=== PATIENT | female | born 1960 | race Caucasian/White ===

== ENCOUNTER 2019-04-02 14:30 | Inpatient (IN) | payer OTHER ==
--- NOTE | 2019-04-02 14:31 | PDOC ---
History of Present Illness - General Chief Complaint: Vomiting/Diarrhea Stated Complaint: n/v/d Time Seen by Provider: 04/02/19 14:31 - History of Present Illness Initial Comments: HPI: 58yo F with PMH of IBS, hypothyroidism, hiatal hernia, recent pneumonia ( finished z-calvin on Sunday) presenting with weakness, nausea, vomiting, and diarrhea. Patient states she has been feeling poorly for the past month and a half. Since yesterday, patient has had about seven episodes of nonbloody bilious vomiting as well as five to six episodes of diarrhea. Ate leftovers last night which she does not think were suspect and no one else had this food. She has had poor po intake today due to nausea. Also had a significant headache yesterday which was relieved with tylenol. Denies recent falls, focal weakness, or syncope. Has had some adjustments in medications including bisphosponates and thyroid medication. No recent sick contacts. Denies chest pain or shortness of breath. Endorses chills and subjective fever. ROS: Constitutional: +fever, +chills HEENT: no throat pain, no dysphagia Cardiovascular: no chest pain, no palpitations Respiratory: +cough, no shortness of breath Gastrointestinal: +vomiting, +diarrhea Genitourinary: no dysuria, no hematuria Musculoskeletal: no myalgia, no arthralgia Skin: no rash, no itching Neurologic: no syncope, +weakness PE: General: Awake, alert, and fully oriented, in no acute distress Head: No signs of trauma Eyes: EOMI, sclera anicteric ENT: Dry mucus membranes Neck: Normal ROM, supple Lungs: Lungs clear, Normal breath sounds Cardio: Regular rhythm, S1 and S2 present Abdomen: Soft, nondistended. Mild diffuse ttp, however distractable. No rebound , guarding, masses. No CVA tenderness. Extremities: Normal range of motion, Distal pulses present, No calf tenderness SKIN: Warm, Dry, normal turgor Neurologic: Cranial nerves II through XII grossly intact. Normal speech ED Course/MDM: DDX including but not limited to dehydration, gastroenteritis, ACS, PNA, anemia , metabolic derangement Labs, EKG, CXR Fluids Zofran 04/02/19 14:31 Tylenol Pepcid EKG: rate 68, QTc 452, NSR 04/02/19 16:01 CBC WBC 12.3 K/mm3 (4.0-10.8) H 04/02/19 15:24 RBC 4.43 M/mm3 (3.60-5.2) 04/02/19 15:24 Hgb 12.2 GM/dl (10.7-15.3) 04/02/19 15:24 Hct 38.0 % (32.4-45.2) 04/02/19 15:24 MCV 85.9 fl (80-96) 04/02/19 15:24 MCH 27.6 pg (25.7-33.7) 04/02/19 15:24 MCHC 32.1 g/dl (32.0-36.0) 04/02/19 15:24 RDW 12.9 % (11.6-15.6) 04/02/19 15:24 Plt Count 331 K/MM3 (134-434) 04/02/19 15:24 MPV 8.4 fl (7.5-11.1) 04/02/19 15:24 Absolute Neuts (auto) 10.6 K/mm3 04/02/19 15:24 Neutrophils % 86.0 % (42.8-82.8) H 04/02/19 15:24 Lymphocytes % 9.6 % (8-40) 04/02/19 15:24 Monocytes % 3.8 % (3.8-10.2) 04/02/19 15:24 Eosinophils % 0.4 % (0-4.5) 04/02/19 15:24 Basophils % 0.2 % (0-2.0) 04/02/19 15:24 Mild leukocytosis No anemia CMP Sodium 136 mmol/L (136-145) 04/02/19 15:24 Potassium 3.6 mmol/L (3.5-5.1) 04/02/19 15:24 Chloride 104 mmol/L (98-107) 04/02/19 15:24 Carbon Dioxide 24 mmol/L (21-32) 04/02/19 15:24 Anion Gap 8 MMOL/L (8-16) 04/02/19 15:24 BUN 8.0 mg/dl (7-18) 04/02/19 15:24 Creatinine 0.8 mg/dl (0.55-1.3) 04/02/19 15:24 Est GFR (CKD-EPI)AfAm 94.19 04/02/19 15:24 Est GFR (CKD-EPI)NonAf 81.27 04/02/19 15:24 Random Glucose 90 mg/dl (74-106) 04/02/19 15:24 Calcium 8.2 mg/dl (8.5-10) L 04/02/19 15:24 Total Bilirubin 1.1 mg/dl (0.2-1) H 04/02/19 15:24 AST 18 U/L (15-37) 04/02/19 15:24 ALT 14 U/L (13-61) 04/02/19 15:24 Alkaline Phosphatase 79 U/L (45-117) 04/02/19 15:24 Creatine Kinase 38 U/L (26-192) 04/02/19 15:24 Troponin I < 0.03 ng/ml (0.00-0.05) 04/02/19 15:24 Total Protein 6.9 g/dl (6.4-8.2) 04/02/19 15:24 Albumin 3.6 g/dl (3.4-5.0) 04/02/19 15:24 Lipase 83 U/L (73-393) 04/02/19 15:24 Electrolytes unremarkable Normal Cr No transaminitis Tpn undetectable Lipase normal UA with 1+ ketones; trace LE and WBCs, however contaminated with many epithelials Patient reports no change in how she feels. States she continues to have nausea and dry heaving Another 1L NS ordered; Reglan for nausea CXR, as reported by radiology: The heart size is within normal limits. The lung graham are free or pulmonary infiltrates or pleural effusions. IMPRESSION: Normal chest Pending influenza test Pending reassessment 04/02/19 17:24 Patient given ice chips; unable to tolerate po after two antiemetics Plan for admission [employer] sent; awaiting callback 04/02/19 18:20 Discussed case with Cierra Meier who accepted patient for admission under Dr. Rodriguez 04/02/19 19:16 Past History - Past Medical History Allergies/Adverse Reactions: Allergies Allergy/AdvReac Type Severity Reaction Status Date / Time amoxicillin trihydrate Allergy Intermediate Rash Verified 04/02/19 15:38 [From Augmentin] potassium clavulanate Allergy Intermediate Rash Verified 04/02/19 15:38 [From Augmentin] Home Medications: Ambulatory Orders Aspirin [Aspir 81] 81 mg PO DAILY 06/07/12 Cholecalciferol (Vitamin D3) [Vitamin D3] 2,000 unit PO DAILY capsule 09/09/14 Levothyroxine [Synthroid -] 75 mcg PO DAILY 04/02/19 Anemia: Yes (MARC) Asthma: No Cancer: No Cardiac Disorders: No CVA: No COPD: Yes (PNEUMONIA) CHF: No Dementia: No Diabetes: No GI Disorders: Yes (HIATAL HERNIA; DIVERTICULOSIS; IBS;) Disorders: No HTN: No Hypercholesterolemia: No Liver Disease: No Seizures: No Thyroid Disease: Yes (HYPOTHYROIDISM;) - Surgical History Abdominal Surgery: No Appendectomy: Yes Cardiac Surgery: No Cholecystectomy: No Lung Surgery: No Neurologic Surgery: No Orthopedic Surgery: No - Psycho Social/Smoking Cessation Hx Smoking History: Never smoked Hx Alcohol Use: Yes (SOCIAL) Drug/Substance Use Hx: No Substance Use Type: None Hx Substance Use Treatment: No ED Treatment Course - LABORATORY CBC & Chemistry Diagram: 04/02/19 15:24 04/02/19 15:24 Discharge - Discharge Information Problems reviewed: Yes Clinical Impression/Diagnosis: Nausea vomiting and diarrhea, Dehydration Condition: Guarded - Admission Yes - Follow up/Referral - Patient Discharge Instructions - Post Discharge Activity
[2019-04-02] MEDS ORDERED: SODIUM CHLORIDE 1,000 ML IV STA ×3 (15:22→18:15)
[2019-04-02] MEDS ORDERED: ONDANSETRON 4 MG/2 ML VIAL IVPUSH ONE (15:22)
[2019-04-02] MEDS ORDERED: ONDANSETRON 4 MG/2 ML VIAL ONE ×2 (15:30→18:34)
[2019-04-02 15:52] LABS: BASO % 0.2 % (0-2.0); EOS % 0.4 % (0-4.5); HEMOGLOBIN 12.2 GM/dl (10.7-15.3); LYMPH % 9.6 % (8-40); MCH 27.6 pg (25.7-33.7); MCHC 32.1 g/dl (32.0-36.0); MEAN CELL VOLUME 85.9 fl (80-96); MEAN PLT VOLUME 8.4 fl (7.5-11.1); MONO % 3.8 % (3.8-10.2); PLATELET COUNT 331 K/MM3 (134-434); RBC 4.43 M/mm3 (3.60-5.2); RDW 12.9 % (11.6-15.6); WHITE BLOOD COUNT 12.3 K/mm3 (4.0-10.8)
[2019-04-02 15:59] LABS: ALBUMIN 3.6 g/dl (3.4-5.0); BILIRUBIN,TOTAL 1.1 mg/dl (0.2-1); CALCIUM 8.2 mg/dl (8.5-10); CREATININE 0.8 mg/dl (0.55-1.3); POTASSIUM 3.6 mmol/L (3.5-5.1); TOT PROT 6.9 g/dl (6.4-8.2)
[2019-04-02 15:59] LABS: URINE APPEARANCE SL CLOUDY; URINE BILIRUBIN 1+ (NEGATIVE); URINE COLOR YELLOW; URINE GLUCOSE (UA) NEGATIVE (NEGATIVE)
[2019-04-02 16:00] LABS: URINE KETONE 1+ (NEGATIVE); URINE LEUK ESTERASE TRACE (NEGATIVE); URINE NITRITE NEGATIVE (NEGATIVE); URINE PROTEIN 2+ (NEGATIVE); URINE UROBILINOGEN 0.2 (0.2-1.0)
[2019-04-02] MEDS ORDERED: FAMOTIDINE 20 MG/50 ML IVPB 20 MG/50 ML MG IVPB ONE ×2 (16:00→16:08)
[2019-04-02] MEDS ORDERED: ACETAMINOPHEN 1000 MG/100 ML VIAL (NON FORMULARY) IVPB ONE (16:00)
[2019-04-02 16:01] LABS: EPITHELIAL CELLS MANY /hpf; URINE BACTERIA MANY /hpf (NEGATIVE)
[2019-04-02] MEDS ORDERED: ACETAMINOPHEN INJECTION 100 ML IVPB ONE (16:08)
--- NOTE | 2019-04-02 16:12 | PDOC ---
Attending Attestation - Resident Resident Name: Maryjo Irwin - ED Attending Attestation I have performed the following: I have examined & evaluated the patient, The case was reviewed & discussed with the resident, I agree w/resident's findings & plan, Exceptions are as noted - HPI HPI: 04/02/19 16:10 58 F with h/o IBS, hypothyroid, presenting to ED with N+V+D. Pt states that she has felt unwell for the past month. She notes that she was diagnosed with PNA last week and completed a course of azithromycin. Last night, pt states that she began to feel nauseous. She vomited about 7 times, followed by several episodes of diarrhea. Pt endorses headache last night that has since resolved. Denies fevers but endorses chills. Denies CP/SOB. Denies abdominal pain. - Physicial Exam PE: 04/02/19 16:11 "GENERAL: Awake, alert, and fully oriented, in no acute distress. HEAD: No signs of trauma EYES: PERRLA, EOMI, sclera anicteric, conjunctiva clear ENT: Auricles normal inspection, hearing grossly normal, nares patent, oropharynx clear without exudates. Moist mucosa NECK: Nontender, no stepoffs, Normal ROM, supple, no lymphadenopathy, JVD, or masses LUNGS: Breath sounds equal, clear to auscultation bilaterally. No wheezes, and no crackles HEART: Regular rate and rhythm, normal S1 and S2, no murmurs, rubs or gallops ABDOMEN: Soft, nontender, normoactive bowel sounds. No guarding, no rebound. No masses EXTREMITIES: Normal range of motion, no edema. No clubbing or cyanosis. No cords, erythema, or tenderness NEUROLOGICAL: Cranial nerves II through XII intact. 5/5 strength and sensation in all extremities, Normal speech, normal gait, normal cerebellar function SKIN: Warm, Dry, normal turgor, no rashes or lesions noted. - Medical Decision Making 04/02/19 16:12 58 F with N+V+D. Suspect viral gastroenteritis. - Labs - IVF, GI cocktail 04/02/19 18:16 Pt reassessed - continues to have nausea and vomiting despite zofran, reglan, and fluids Labs unremarkable Will admit for failure to PO
[2019-04-02 16:14] LABS: URINE WBC 20-40 (NEGATIVE)
[2019-04-02 16:15] LABS: EPI CELLS many /HPF
[2019-04-02] MEDS ORDERED: METOCLOPRAMIDE HCL INJECTION 10 MG/2 ML VIAL IVPUSH ONE (16:51)
[2019-04-02] MEDS ORDERED: METOCLOPRAMIDE HCL INJECTION 10 MG/2 ML VIAL ONE (16:56)
[2019-04-02] MEDS ORDERED: METOCLOPRAMIDE HCL INJECTION 10 MG/2 ML VIAL IVPB ONE (16:56)
[2019-04-02] MEDS ORDERED: ONDANSETRON 4 MG/2 ML VIAL IVPB ONE (18:15)
[2019-04-02] MEDS: DEXTROSE 5%-NORMAL SALINE 1,000 ML IV SCH (22:47)
[2019-04-02 23:11] VITALS: BMI 23.8
[2019-04-03] MEDS: LEVOTHYROXINE NA 75 MCG TABLET (FP) PO SCH (06:09)
[2019-04-03 07:50] LABS: BASO % 0.3 % (0-2.0); EOS % 1.9 % (0-4.5); HEMATOCRIT 33.2 % (32.4-45.2); HEMOGLOBIN 11.1 GM/dl (10.7-15.3); MCH 28.9 pg (25.7-33.7); MCHC 33.3 g/dl (32.0-36.0); MEAN CELL VOLUME 86.8 fl (80-96); MEAN PLT VOLUME 8.6 fl (7.5-11.1); MONO % 5.4 % (3.8-10.2); NEUT % 75.4 % (42.8-82.8); PLATELET COUNT 280 K/MM3 (134-434); RBC 3.83 M/mm3 (3.60-5.2); RDW 12.7 % (11.6-15.6); WHITE BLOOD COUNT 7.6 K/mm3 (4.0-10.8)
--- NOTE | 2019-04-03 07:52 | HP ---
CHIEF COMPLAINT: Vomiting PCP: Dr. Alfonso HISTORY OF PRESENT ILLNESS: 58 year-old female with a PMH significant for hypothyroidism, diverticulosis, and IBS. Recent pneumonia (finished z-calvin on Sunday) presenting with weakness, nausea, vomiting, and diarrhea. Ate leftovers yesterday and several hours later developed multiple episodes of nonbloody bilious vomiting and five to six episodes of diarrhea Has had some adjustments in medications including bisphosponates and thyroid medication. No recent sick contacts. Denies chest pain or shortness of breath. Endorses chills and subjective fever. ER course was notable for: (1) WBC 12.3k (2) UA: pyuria Recent Travel: No PAST MEDICAL HISTORY: Graves disease Hypothyroidism Diverticulosis IBS PAST SURGICAL HISTORY: Discectomy L4-5 C-sectin x 2 Apendectomy Hemorrhoid banding Social History: corporate executive Smoking: quit 1978 Alcohol: social Drugs: marijuana 3x/week Family history: Mother 72, h/o [place] @ 46, ulcerative colitis, breast cancer; father 69 colon cancer, HTN; 1 brother HTN; 1 sister h/o Guillian Towson ; strong maternal history of diverticulitis Allergies amoxicillin trihydrate [From Augmentin] Allergy (Intermediate, Verified 15:38) Rash potassium clavulanate [From Augmentin] Allergy (Intermediate, Verified 04/02/19 15:38) Rash HOME MEDICATIONS: Home Medications Medication Instructions Recorded Aspirin [Aspir 81] 81 mg PO DAILY 06/07/12 Cholecalciferol (Vitamin D3) 2,000 unit PO DAILY capsule 09/09/14 [Vitamin D3] Levothyroxine [Synthroid -] 75 mcg PO DAILY 04/02/19 REVIEW OF SYSTEMS CONSTITUTIONAL: Absent: fever, chills, diaphoresis, generalized weakness, malaise, loss of appetite, weight change HEENT: Absent: rhinorrhea, nasal congestion, throat pain, throat swelling, difficulty swallowing, mouth swelling, ear pain, eye pain, visual changes CARDIOVASCULAR: Absent: chest pain, syncope, palpitations, irregular heart rate, lightheadedness , peripheral edema RESPIRATORY: Absent: cough, shortness of breath, dyspnea with exertion, orthopnea, wheezing, stridor, hemoptysis GASTROINTESTINAL: +nausea, vomiting, diarrhea Absent: abdominal pain, abdominal distension, constipation, melena, hematochezia GENITOURINARY: Absent: dysuria, frequency, urgency, hesitancy, hematuria, flank pain, genital pain MUSCULOSKELETAL: Absent: myalgia, arthralgia, joint swelling, back pain, neck pain SKIN: Absent: rash, itching, pallor HEMATOLOGIC/IMMUNOLOGIC: Absent: easy bleeding, easy bruising, lymphadenopathy, frequent infections ENDOCRINE: Absent: unexplained weight gain, unexplained weight loss, heat intolerance, cold intolerance NEUROLOGIC: Absent: headache, focal weakness or paresthesias, dizziness, unsteady gait, seizure, mental status changes, bladder or bowel incontinence PSYCHIATRIC: Absent: anxiety, depression, suicidal or homicidal ideation, hallucinations. PHYSICAL EXAMINATION Vital Signs - 24 hr 04/02/19 04/02/19 04/02/19 14:31 17:54 20:59 Temperature 98.9 F 98.3 F 98 F Pulse Rate 72 60 Pulse Rate [ 70 Right] Respiratory 16 18 18 Rate Blood Pressure 146/89 125/74 Blood Pressure 137/81 [Left Arm] O2 Sat by Pulse 99 97 98 Oximetry (%) 04/02/19 04/02/19 04/03/19 21:00 23:53 03:00 Temperature 97.7 F 97.8 F Pulse Rate 55 L 56 L Pulse Rate [ Right] Respiratory 18 18 18 Rate Blood Pressure 130/73 144/81 Blood Pressure [Left Arm] O2 Sat by Pulse 98 99 100 Oximetry (%) 04/03/19 07:39 Temperature Pulse Rate Pulse Rate [ Right] Respiratory 18 Rate Blood Pressure Blood Pressure [Left Arm] O2 Sat by Pulse 100 Oximetry (%) GENERAL: Awake, alert, and fully oriented, in no acute distress. LUNGS: Breath sounds equal, clear to auscultation bilaterally. No wheezes, and no crackles. No accessory muscle use. HEART: Regular rate and rhythm, normal S1 and S2 ABDOMEN: Soft, nontender, not distended, normoactive bowel sounds, no guarding, no rebound MUSCULOSKELETAL: Normal range of motion at all joints. No bony deformities or tenderness. No CVA tenderness. UPPER EXTREMITIES: 2+ pulses, warm, well-perfused. No cyanosis. No clubbing. No peripheral edema. LOWER EXTREMITIES: 2+ pulses, warm, well-perfused. No calf tenderness. No peripheral edema. NEUROLOGICAL: Cranial nerves II-XII intact. Normal speech. Laboratory Results - last 24 hr 04/02/19 04/02/1919 15:20 15:24 15:24 WBC 12.3 H RBC 4.43 Hgb 12.2 Hct 38.0 MCV 85.9 MCH 27.6 MCHC 32.1 RDW 12.9 Plt Count 331 MPV 8.4 Absolute Neuts (auto) 10.6 Neutrophils % 86.0 H Lymphocytes % 9.6 Monocytes % 3.8 Eosinophils % 0.4 Basophils % 0.2 Sodium 136 Potassium 3.6 Chloride 104 Carbon Dioxide 24 Anion Gap 8 BUN 8.0 Creatinine 0.8 Est GFR (CKD-EPI)AfAm 94.19 Est GFR (CKD-EPI)NonAf 81.27 Random Glucose 90 Calcium 8.2 L Total Bilirubin 1.1 H AST 18 ALT 14 Alkaline Phosphatase 79 Creatine Kinase Troponin I Total Protein 6.9 Albumin 3.6 Lipase Urine Color Yellow Urine Appearance Sl cloudy Urine pH 6.0 Ur Specific Wilburn 1.025 Urine Protein 2+ Urine Glucose (UA) Negative Urine Ketones 1+ H Urine Blood 1+ Urine Nitrite Negative Urine Bilirubin 1+ Urine Urobilinogen 0.2 Ur Leukocyte Esterase Trace H Urine WBC (Auto) 20-40 Urine RBC (Auto) 10-20 U Epithel Cells (Auto) many Urine Bacteria (Auto) Many Urine RBC 10-20 Urine WBC 20-40 Ur Transition Epith Cell Many Influenza A (Rapid) Influenza B (Rapid) 04/02/19 04/02/19 04/02/19 15:24 15:24 15:24 WBC RBC Hgb Hct MCV MCH MCHC RDW Plt Count MPV Absolute Neuts (auto) Neutrophils % Lymphocytes % Monocytes % Eosinophils % Basophils % Sodium Potassium Chloride Carbon Dioxide Anion Gap BUN Creatinine Est GFR (CKD-EPI)AfAm Est GFR (CKD-EPI)NonAf Random Glucose Calcium Total Bilirubin AST ALT Alkaline Phosphatase Creatine Kinase 38 Troponin I < 0.03 Total Protein Albumin Lipase 83 Urine Color Urine Appearance Urine pH Ur Specific Wilburn Urine Protein Urine Glucose (UA) Urine Ketones Urine Blood Urine Nitrite Urine Bilirubin Urine Urobilinogen Ur Leukocyte Esterase Urine WBC (Auto) Urine RBC (Auto) U Epithel Cells (Auto) Urine Bacteria (Auto) Urine RBC Urine WBC Ur Transition Epith Cell Influenza A (Rapid) Influenza B (Rapid) 04/02/19 17:15 WBC RBC Hgb Hct MCV MCH MCHC RDW Plt Count MPV Absolute Neuts (auto) Neutrophils % Lymphocytes % Monocytes % Eosinophils % Basophils % Sodium Potassium Chloride Carbon Dioxide Anion Gap BUN Creatinine Est GFR (CKD-EPI)AfAm Est GFR (CKD-EPI)NonAf Random Glucose Calcium Total Bilirubin AST ALT Alkaline Phosphatase Creatine Kinase Troponin I Total Protein Albumin Lipase Urine Color Urine Appearance Urine pH Ur Specific Wilburn Urine Protein Urine Glucose (UA) Urine Ketones Urine Blood Urine Nitrite Urine Bilirubin Urine Urobilinogen Ur Leukocyte Esterase Urine WBC (Auto) Urine RBC (Auto) U Epithel Cells (Auto) Urine Bacteria (Auto) Urine RBC Urine WBC Ur Transition Epith Cell Influenza A (Rapid) Negative Influenza B (Rapid) Negative ASSESSMENT/PLAN 58 year-old female with a PMH significant for hypothyroidism, diverticulosis, and IBS. Admitted for nausea, vomiting, diarrhea. Gastroenteritis h/o diverticulosis h/o IBS --afebrile, mild leukocytosis on admission, now resolved --start ice chips, sips of water, advance to clears as tolerated --has not had BM since admission, send stool studies when patient has next BM --IV fluids Pyuria --without symptoms --no antibiotics for now, wait for culture Hypothyroidism --continue synthroid FEN Fluids: D5NS@125mL/hr Electrolytes: replete as indicated Nutrition: clears DVT prophylaxis: subq lovenox Dispo: continues to require inpatient care. Full code. Visit type - Emergency Visit Emergency Visit: Yes ED Registration Date: 04/02/19 Care time: The patient presented to the Emergency Department on the above date and was hospitalized for further evaluation of their emergent condition. - New Patient This patient is new to me today: Yes Date on this admission: 04/03/19 - Critical Care Critical Care patient: No
[2019-04-03 07:58] LABS: ALBUMIN 3.2 g/dl (3.4-5.0); BILIRUBIN,TOTAL 0.6 mg/dl (0.2-1); CALCIUM 7.1 mg/dl (8.5-10); CREATININE 0.7 mg/dl (0.55-1.3); MAGNESIUM 1.7 mg/dL (1.8-2.4); PHOSPHOROUS 1.9 mg/dl (2.5-4.9); POTASSIUM 3.7 mmol/L (3.5-5.1); TOT PROT 5.9 g/dl (6.4-8.2)
[2019-04-03] MEDS ORDERED: MAGNESIUM SULF 50% (8.12 MEQ/2 ML-1 GM VIAL) IVPB ONE (08:51)
[2019-04-03] MEDS ORDERED: MAGNESIUM SULFATE IN WATER 2 GM/50 ML IVPB IVPB ONE (09:00)
--- NOTE | 2019-04-03 09:28 | PN ---
Progress Note (short form) - Note Progress Note: Patient seen and labs reviewed with consult dictated. Patient appears to have an acute gastroenteritis; symptoms began several hours after eating leftovers. Had N/V/ diarrhea and cramps. Initial WBC elevated. Today feels better although still with some diarrhea but no fever or vomiting and WBC improved. Recommend check/order stool cultures begin on clear liquid diet; continue IV fluids at present follow clinically
[2019-04-03] MEDS ORDERED: ACETAMINOPHEN 325 MG TABLET (FP) PO PRN (11:41)
--- NOTE | 2019-04-03 12:41 | EKG ---
Test Reason : Blood Pressure : / mmHG Vent. Rate : 068 BPM Atrial Rate : 068 BPM P-R Int : 136 ms QRS Dur : 082 ms QT Int : 426 ms P-R-T Axes : 079 082 062 degrees QTc Int : 452 ms NORMAL SINUS RHYTHM NORMAL ECG NO PREVIOUS ECGS AVAILABLE Confirmed by JULES CLAUDIO, CARLOS MANUEL ([id number]) on 04/03/2019 12:40:38 PM Referred By: MD CARRENO Confirmed By:CARLOS MANUEL VICENTE MD
--- NOTE | 2019-04-03 12:59 | CONS ---
DATE OF CONSULTATION: 04/03/2019 REASON FOR CONSULTATION: Asked to evaluate this 58-year-old female admitted through the emergency room with nausea, vomiting, and diarrhea. HISTORY OF PRESENT ILLNESS: The patient is a 58-year-old female with a history of diverticular disease in the past, irritable bowel syndrome, hypothyroidism, hiatal hernia, and recent pneumonia. She states that she was in her usual state of health, until the day prior to admission, when she ate leftovers from 2-3 nights earlier and subsequently developed nausea, diarrhea, and some vomiting. She presented to the emergency room and was admitted due to poor p.o. intake. She also was noted at the time of admission to have an elevated white count of 12.3. She had no fever, but did feel slightly sweaty, and also complained of abdominal cramps and discomfort. The patient's hospital course has been notable for treatment with IV fluids. Her repeat white count today is 7.6. Her hemoglobin is 11.1 and hematocrit is 33.2 and her chemistry is unremarkable with normal liver chemistries, as well. The patient states she does occasionally have some GI upset and some occasional nausea. She is followed by a self pay collector in [facility] with regard to her episodes of diverticulitis and believes she had a colonoscopy approximately 1 year ago. PHYSICAL EXAMINATION: General: On exam, she is a well-developed, well-nourished female lying in bed comfortably. She states she had some diarrhea this morning, but no further nausea, vomiting, and she is slightly thirsty. Oropharynx: Appears normal with slight dryness to the mucosa. Abdomen: Soft, flat, and nontender without any obvious masses or distention. ASSESSMENT AND PLAN: The patient most likely had an acute gastroenteritis, possibly related to eating leftover food. She currently is slowly improving with no further nausea, vomiting, no fever, an improving white count, but still some diarrhea. Stool cultures can be ordered, if not sent from the emergency room, and the patient can be started on clear liquids as tolerated. Will follow as needed. AKILAH NAVARRO M.D. [id number]
[2019-04-03] MEDS: ENOXAPARIN NA (PORCINE) 40 MG/0.4 ML DISP.SYRIN SQ SCH (15:14)
[2019-04-03] MEDS: ONDANSETRON 4 MG/2 ML VIAL IVPUSH PRN (21:21)
[2019-04-03] MEDS: DEXTROSE 5%-NORMAL SALINE 1,000 ML IV SCH (21:45)
[2019-04-03] MEDS ORDERED: ZOLPIDEM TARTRATE 5 MG TABLET PO PRN (23:28)
[2019-04-04] MEDS: LEVOTHYROXINE NA 75 MCG TABLET (FP) PO SCH (06:38)
[2019-04-04] MEDS: ENOXAPARIN NA (PORCINE) 40 MG/0.4 ML DISP.SYRIN SQ SCH (09:38)
[2019-04-04] MEDS: ONDANSETRON 4 MG/2 ML VIAL IVPUSH PRN (09:51)
[2019-04-04] MEDS ORDERED: ONDANSETRON 4 MG/2 ML VIAL IVPUSH ONE (10:00)
[2019-04-04 12:16] VITALS: BP 138/92; PULSE 57; TEMP 98
== END 2019-04-04 12:10 | disposition home or self-care (01) | DRG 392 ==
LOC: FER 14:30 → FM/S 20:23
PROVIDERS: ADMIT Internal Medicine; ATTEND Nurse Practitioner Acute Care
DX: K52.9 Noninfective gastroenteritis and colitis, unspecified (principal); E03.9 Hypothyroidism, unspecified; R82.81 Pyuria; D72.829 Elevated white blood cell count, unspecified; E86.0 Dehydration
CPT/HCPCS: 36415; 71046-TC-FY; 80053; 81003; 81015; 82550; 83690; 83735; 84100; 84443; 84484; 85025; 87045; 87046; 87086; 87205; 87324; 87449; 87804; 93005; 99285-25; J0131; J7030

== ENCOUNTER 2020-05-03 13:03 | Emergency (ER) | payer OTHER ==
[2020-05-03 13:22] VITALS: BP 115/85; PULSE 81; TEMP 99.4; BMI 21.9
[2020-05-03] MEDS ORDERED: MAG HYDROX/AL HYDROX/SIMETH 30 ML UNIT-DOSE CUP PO ONE (13:52)
[2020-05-03] MEDS ORDERED: FAMOTIDINE 10 MG TABLET PO ONE ×2 (13:53→14:01)
[2020-05-03] MEDS ORDERED: MAG HYDROX/AL HYDROX/SIMETH 30 ML UNIT-DOSE CUP ONE (13:57)
[2020-05-03] MEDS ORDERED: FAMOTIDINE 20 MG TABLET ONE (13:57)
[2020-05-03 14:34] LABS: ALBUMIN 3.7 g/dl (3.4-5.0); BILIRUBIN,TOTAL 0.9 mg/dl (0.2-1); CALCIUM 8.4 mg/dl (8.5-10); CREATININE 0.9 mg/dl (0.55-1.3); POTASSIUM 3.7 mmol/L (3.5-5.1); TOT PROT 6.6 g/dl (6.4-8.2)
[2020-05-03 14:36] LABS: EOS % 2.7 % (0-4.5); HEMATOCRIT 40.2 % (32.4-45.2); HEMOGLOBIN 13.3 GM/dl (10.7-15.3); LYMPH % 22.1 % (8-40); MEAN CELL VOLUME 87.7 fl (80-96); MEAN PLT VOLUME 8.8 fl (7.5-11.1); MONO % 9.9 % (3.8-10.2); NEUT % 64.3 % (42.8-82.8); PLATELET COUNT 314 K/MM3 (134-434); RBC 4.58 M/mm3 (3.60-5.2); RDW 13.3 % (11.6-15.6); WHITE BLOOD COUNT 6.3 K/mm3 (4.0-10.8)
[2020-05-03] MEDS ORDERED: ACETAMINOPHEN 1000 MG/100 ML VIAL (NON FORMULARY) IVPB ONE (15:15)
[2020-05-03] MEDS ORDERED: ONDANSETRON 4 MG/2 ML VIAL IVPUSH ONE (15:15)
[2020-05-03] MEDS ORDERED: LACTATED RINGERS SOLUTION 1000 ML INFUS.BAG IV ONE (15:15)
[2020-05-03] MEDS ORDERED: ONDANSETRON 4 MG/2 ML VIAL ONE (15:21)
[2020-05-03] MEDS ORDERED: ACETAMINOPHEN INJECTION 100 ML IVPB ONE (15:21)
[2020-05-03 15:41] LABS: EPITHELIAL CELLS FEW /hpf; URINE MUCUS 1+
[2020-05-03] MEDS ORDERED: METOCLOPRAMIDE HCL INJECTION 10 MG/2 ML VIAL IVPB ONE (17:05)
[2020-05-03] MEDS ORDERED: METOCLOPRAMIDE HCL INJECTION 10 MG/2 ML VIAL ONE (17:07)
== END 2020-05-03 17:43 | disposition home or self-care (01) ==
LOC: FER 13:03
PROC: 3E033GC Introduction of Other Therapeutic Substance into Peripheral Vein, Percutaneous Approach (ICD-10-PCS; principal; 2020-05-03)
DX: R10.13 Epigastric pain (principal)
CPT/HCPCS: 36415; 71046-TC-FY; 80053; 81003; 81015; 82550; 83690; 84484; 85025; 93005; 99285-25; J0131

== ENCOUNTER 2022-02-14 17:26 | Inpatient (IN) | payer OTHER ==
[2022-02-14] MEDS ORDERED: ONDANSETRON 4 MG/2 ML VIAL IVPUSH ONE (18:02)
[2022-02-14] MEDS ORDERED: SODIUM CHLORIDE 0.9% 1000 ML INFUS.BAG IV ONE (18:02)
[2022-02-14] MEDS ORDERED: ACETAMINOPHEN 1000 MG/100 ML BAG IVPB ONE (18:02)
[2022-02-14] MEDS ORDERED: ONDANSETRON 4 MG/2 ML VIAL ONE (18:17)
[2022-02-14] MEDS ORDERED: ACETAMINOPHEN INJECTION 100 ML IVPB ONE (18:18)
[2022-02-14 18:45] LABS: HEMATOCRIT 34.7 % (32.4-45.2); HEMOGLOBIN 12.3 G/dL (10.7-15.3); MCH 30.6 pg (25.7-33.7); MCHC 35.3 g/dl (32.0-36.0); MEAN CELL VOLUME 86.8 fl (80-96); MEAN PLT VOLUME 7.8 fl (7.5-11.1); PLATELET COUNT 286.4 10^3/uL (134-434); RDW 14.7 % (11.6-15.6); WHITE BLOOD COUNT 8.7 10^3/uL (4.0-10.8)
[2022-02-14 18:59] LABS: ALBUMIN 3.8 g/dl (3.4-5.0); CALCIUM 9.1 mg/dl (8.5-10); CREATININE 0.9 mg/dl (0.55-1.3)
[2022-02-14] MEDS: DEXTROSE 5%-NORMAL SALINE 1,000 ML IV SCH (23:00)
[2022-02-14] MEDS ORDERED: TRIMETHOBENZAMIDE HCL 200MG/2ML INJ IM PRN (23:03)
[2022-02-15] MEDS ORDERED: ONDANSETRON 4 MG/2 ML VIAL IVPUSH PRN (00:30)
[2022-02-15] MEDS ORDERED: ZOLPIDEM TARTRATE 5 MG TABLET PO ONE ×2 (01:41→21:00)
[2022-02-15] MEDS ORDERED: MAG HYDROX/AL HYDROX/SIMETH 30 ML UNIT-DOSE CUP PO PRN (03:18)
[2022-02-15] MEDS ORDERED: FAMOTIDINE 20 MG/50 ML IVPB 20 MG/50 ML MG IVPB ONE (03:18)
[2022-02-15] MEDS ORDERED: MELATONIN 1 MG TABLET PO ONE (03:21)
[2022-02-15] MEDS: ACETAMINOPHEN 1000 MG/100 ML BAG IVPB PRN ×2 (03:29→12:57)
[2022-02-15 03:40] VITALS: BMI 22.3
[2022-02-15] MEDS: LEVOTHYROXINE NA 75 MCG TABLET (FP) PO SCH (06:06)
[2022-02-15 08:16] LABS: CALCIUM 7.8 mg/dl (8.5-10); CREATININE 0.9 mg/dl (0.55-1.3)
[2022-02-15 08:18] LABS: HEMATOCRIT 31.1 % (32.4-45.2); HEMOGLOBIN 10.7 G/dL (10.7-15.3); MCH 29.8 pg (25.7-33.7); MCHC 34.4 g/dl (32.0-36.0); MEAN CELL VOLUME 86.5 fl (80-96); MEAN PLT VOLUME 8.1 fl (7.5-11.1); PLATELET COUNT 262.8 10^3/uL (134-434); RBC 3.59 10^6/uL (3.60-5.2); RDW 14.4 % (11.6-15.6); WHITE BLOOD COUNT 6.3 10^3/uL (4.0-10.8)
[2022-02-15] MEDS: PANTOPRAZOLE SODIUM 40 MG VIAL IVPUSH SCH (12:15)
[2022-02-15] MEDS: ONDANSETRON 4 MG/2 ML VIAL IVPUSH PRN ×2 (12:54→20:56)
[2022-02-15] MEDS: HEPARIN NA (PORCINE) 5,000 UNITS/ML 1ML VIAL SQ SCH ×3 (14:50→21:57)
[2022-02-15] MEDS ORDERED: IBUPROFEN 800 MG/8 ML IJ IVPB PRN (16:17)
[2022-02-15] MEDS: ACETAMINOPHEN 1000 MG/100 ML BAG IVPB SCH (20:48)
[2022-02-15] MEDS ORDERED: PROMETHAZINE HCL 25 MG/1 ML VIAL IVPB ONE (21:58)
[2022-02-16] MEDS: DEXTROSE 5%-NORMAL SALINE 1,000 ML IV SCH ×2 (00:31→23:30)
[2022-02-16] MEDS: HEPARIN NA (PORCINE) 5,000 UNITS/ML 1ML VIAL SQ SCH ×3 (06:03→21:00)
[2022-02-16] MEDS: LEVOTHYROXINE NA 75 MCG TABLET (FP) PO SCH (06:44)
[2022-02-16 08:20] LABS: ALBUMIN 3.3 g/dl (3.4-5.0); BILIRUBIN,TOTAL 0.6 mg/dl (0.2-1); CALCIUM 8.1 mg/dl (8.5-10); CREATININE 0.9 mg/dl (0.55-1.3); TOT PROT 6.6 g/dl (6.4-8.2)
[2022-02-16] MEDS: PANTOPRAZOLE SODIUM 40 MG VIAL IVPUSH SCH (09:05)
[2022-02-16 11:48] LABS: BASO % 0.9 % (0-2.0); EOS % 4.7 % (0-4.5); HEMATOCRIT 35.4 % (32.4-45.2); HEMOGLOBIN 11.7 GM/dL (10.7-15.3); LYMPH % 22.5 % (8-40); MCH 28.9 pg (25.7-33.7); MEAN CELL VOLUME 87.5 fl (80-96); MEAN PLT VOLUME 8.3 fl (7.5-11.1); MONO % 9.6 % (3.8-10.2); NEUT % 62.3 % (42.8-82.8); PLATELET COUNT 313 10^3/uL (134-434); RBC 4.05 M/mm3 (3.60-5.2); RDW 14.3 % (11.6-15.6); WHITE BLOOD COUNT 5.2 K/mm3 (4.0-10.0)
[2022-02-16] MEDS: ACETAMINOPHEN 1000 MG/100 ML BAG IVPB SCH (17:29)
[2022-02-16] MEDS: MEROPENEM 1 GM in DEXTROSE 5%-WATER 100 ML IVPB SCH (18:37)
[2022-02-16] MEDS: ONDANSETRON 4 MG/2 ML VIAL IVPUSH PRN (19:35)
[2022-02-17] MEDS ORDERED: ZOLPIDEM TARTRATE 5 MG TABLET PO ONE (00:38)
[2022-02-17] MEDS: MEROPENEM 1 GM in DEXTROSE 5%-WATER 100 ML IVPB SCH ×3 (01:09→17:23)
[2022-02-17] MEDS: HEPARIN NA (PORCINE) 5,000 UNITS/ML 1ML VIAL SQ SCH ×2 (06:06→13:34)
[2022-02-17] MEDS: LEVOTHYROXINE NA 75 MCG TABLET (FP) PO SCH (06:15)
[2022-02-17] MEDS ORDERED: ACETAMINOPHEN 1000 MG/100 ML BAG IVPB PRN (08:50)
[2022-02-17] MEDS: POLYETHYLENE GLYCOL (HEALTHYLAX) 3350 17 GM PACKET PO SCH (09:32)
[2022-02-17] MEDS: PANTOPRAZOLE SODIUM 40 MG VIAL IVPUSH SCH (09:32)
[2022-02-17] MEDS: ACETAMINOPHEN 1000 MG/100 ML BAG IVPB SCH (10:51)
[2022-02-17] MEDS: DEXTROSE 5%-NORMAL SALINE 1,000 ML IV SCH (23:00)
[2022-02-18] MEDS: HEPARIN NA (PORCINE) 5,000 UNITS/ML 1ML VIAL SQ SCH ×4 (00:33→21:28)
[2022-02-18] MEDS: ONDANSETRON 4 MG/2 ML VIAL IVPUSH PRN ×2 (00:48→18:15)
[2022-02-18] MEDS: MEROPENEM 1 GM in DEXTROSE 5%-WATER 100 ML IVPB SCH ×3 (00:59→18:09)
[2022-02-18] MEDS: LEVOTHYROXINE NA 75 MCG TABLET (FP) PO SCH (06:25)
[2022-02-18 08:38] LABS: ALBUMIN 3.6 g/dl (3.4-5.0); BILIRUBIN,TOTAL 0.5 mg/dl (0.2-1); CALCIUM 8.5 mg/dl (8.5-10); CREATININE 0.8 mg/dl (0.55-1.3); TOT PROT 6.5 g/dl (6.4-8.2)
[2022-02-18] MEDS: POLYETHYLENE GLYCOL (HEALTHYLAX) 3350 17 GM PACKET PO SCH (09:28)
[2022-02-18] MEDS: PANTOPRAZOLE SODIUM 40 MG VIAL IVPUSH SCH (09:28)
[2022-02-18 10:58] LABS: BASO % 0.7 % (0-2.0); EOS % 3.1 % (0-4.5); HEMATOCRIT 37.7 % (32.4-45.2); HEMOGLOBIN 12.3 GM/dL (10.7-15.3); LYMPH % 15.8 % (8-40); MCHC 32.8 g/dl (32.0-36.0); MEAN CELL VOLUME 85.4 fl (80-96); MEAN PLT VOLUME 8.4 fl (7.5-11.1); MONO % 7.1 % (3.8-10.2); NEUT % 73.3 % (42.8-82.8); PLATELET COUNT 362 10^3/uL (134-434); RBC 4.41 M/mm3 (3.60-5.2); RDW 14.4 % (11.6-15.6); WHITE BLOOD COUNT 7.2 K/mm3 (4.0-10.0)
[2022-02-18] MEDS: ZOLPIDEM TARTRATE 5 MG TABLET PO PRN (22:07)
[2022-02-18] MEDS: DEXTROSE 5%-NORMAL SALINE 1,000 ML IV SCH (23:00)
[2022-02-19] MEDS: MEROPENEM 1 GM in DEXTROSE 5%-WATER 100 ML IVPB SCH ×3 (01:06→18:12)
[2022-02-19] MEDS: LEVOTHYROXINE NA 75 MCG TABLET (FP) PO SCH (06:12)
[2022-02-19] MEDS: HEPARIN NA (PORCINE) 5,000 UNITS/ML 1ML VIAL SQ SCH ×3 (06:12→21:04)
[2022-02-19] MEDS: ONDANSETRON 4 MG/2 ML VIAL IVPUSH PRN ×2 (07:11→18:11)
[2022-02-19] MEDS ORDERED: ACETAMINOPHEN 500 MG TABLET (FP) PO PRN (08:06)
[2022-02-19] MEDS ORDERED: ACETAMINOPHEN 325 MG TABLET (FP) PO PRN (08:30)
[2022-02-19 08:54] LABS: ALBUMIN 3.6 g/dl (3.4-5.0); BILIRUBIN,TOTAL 0.7 mg/dl (0.2-1); CALCIUM 8.5 mg/dl (8.5-10); CREATININE 0.8 mg/dl (0.55-1.3); MAGNESIUM 2.1 mg/dL (1.8-2.4); TOT PROT 6.4 g/dl (6.4-8.2)
[2022-02-19] MEDS: PANTOPRAZOLE SODIUM 40 MG VIAL IVPUSH SCH (09:29)
[2022-02-19] MEDS: POLYETHYLENE GLYCOL (HEALTHYLAX) 3350 17 GM PACKET PO SCH (09:38)
[2022-02-19 09:47] LABS: HEMATOCRIT 38.3 % (32.4-45.2); HEMOGLOBIN 13.2 G/dL (10.7-15.3); MCH 29.8 pg (25.7-33.7); MCHC 34.6 g/dl (32.0-36.0); MEAN CELL VOLUME 86.2 fl (80-96); MEAN PLT VOLUME 8.2 fl (7.5-11.1); PLATELET COUNT 348.5 10^3/uL (134-434); RBC 4.44 10^6/uL (3.60-5.2); RDW 14.3 % (11.6-15.6)
[2022-02-19 10:33] LABS: PLATELET ESTIMATE ADEQUATE
[2022-02-19] MEDS: DEXTROSE 5%-NORMAL SALINE 1,000 ML IV SCH (23:00)
[2022-02-20] MEDS: ZOLPIDEM TARTRATE 5 MG TABLET PO PRN (00:08)
[2022-02-20] MEDS: MEROPENEM 1 GM in DEXTROSE 5%-WATER 100 ML IVPB SCH ×2 (01:55→09:59)
[2022-02-20] MEDS: HEPARIN NA (PORCINE) 5,000 UNITS/ML 1ML VIAL SQ SCH (06:37)
[2022-02-20] MEDS: LEVOTHYROXINE NA 75 MCG TABLET (FP) PO SCH (06:37)
[2022-02-20 08:11] VITALS: BP 130/85; PULSE 66; RESP 20; TEMP 98.6
[2022-02-20 08:47] LABS: ALBUMIN 3.4 g/dl (3.4-5.0); BILIRUBIN,TOTAL 0.4 mg/dl (0.2-1); CALCIUM 8.7 mg/dl (8.5-10); CREATININE 0.9 mg/dl (0.55-1.3); MAGNESIUM 2.1 mg/dL (1.8-2.4); TOT PROT 6.3 g/dl (6.4-8.2)
[2022-02-20] MEDS: POLYETHYLENE GLYCOL (HEALTHYLAX) 3350 17 GM PACKET PO SCH (09:55)
[2022-02-20] MEDS: PANTOPRAZOLE SODIUM 40 MG VIAL IVPUSH SCH (09:59)
[2022-02-20 10:50] LABS: BASO % 0.8 % (0-2.0); EOS % 3.3 % (0-4.5); HEMATOCRIT 38.2 % (32.4-45.2); HEMOGLOBIN 12.5 GM/dL (10.7-15.3); LYMPH % 20.2 % (8-40); MCHC 32.8 g/dl (32.0-36.0); MEAN CELL VOLUME 85.4 fl (80-96); MEAN PLT VOLUME 8.1 fl (7.5-11.1); MONO % 5.5 % (3.8-10.2); NEUT % 70.2 % (42.8-82.8); PLATELET COUNT 369 10^3/uL (134-434); RBC 4.47 M/mm3 (3.60-5.2); RDW 14.4 % (11.6-15.6); WHITE BLOOD COUNT 6.5 K/mm3 (4.0-10.0)
== END 2022-02-20 10:03 | disposition home or self-care (01) | DRG 244 ==
LOC: FER 17:26 → FM/S 23:29
PROVIDERS: ADMIT Internal Medicine
DX: K57.32 Diverticulitis of large intestine without perforation or abscess without bleeding (principal); E03.9 Hypothyroidism, unspecified; I10 Essential (primary) hypertension; F41.9 Anxiety disorder, unspecified; F32.A Depression, unspecified; G47.00 Insomnia, unspecified; K76.89 Other specified diseases of liver; K59.09 Other constipation; E78.5 Hyperlipidemia, unspecified; Z86.16 Personal history of COVID-19
CPT/HCPCS: 0241U-QW; 36415; 74177-TC; 80048; 80053; 81003; 81015; 83690; 83735; 84439; 84443; 85025; 85027; 85651; 86140; 87086; 99285-25; J1644; Q9967